=== PATIENT | male | born 1940 | race Caucasian/White ===

== ENCOUNTER → 2021-01-08 | Outpatient (CLI) | payer MEDICARE ==
--- NOTE | 2021-01-10 22:37 | CT ---
EXAMINATION TYPE: CT angio chest DATE OF EXAM: 01/08/2021 COMPARISON: None HISTORY: 80-year-old male I71.2, thoracic aortic aneurysm without rupture Thoracic aortic aneurysm. TECHNIQUE: Contiguous axial scanning of the chest performed without and with IV Contrast, patient inj ected with 80ml mL of Isovue 370. Coronal/sagittal MIP reconstructions performed. 3-D reconstructions generated on a dedicated independent workstation. CT DLP: 1485.6 mGycm Automated exposure control for dose reduction was used. FINDINGS: Heart upper limits of normal in size without pericardial effusion. Three-vessel coronary artery calci fications are present under a marker for coronary artery disease. Ectatic aortic root at 3.8 cm. 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 Conventional arch vessel branching anatomy but with a tortuous brachiocephalic artery. Minimal athero sclerotic calcifications. Aneurysmal upper descending thoracic aorta 4.0 cm. No thoracic lymphadenopathy by CT size criteria. Mildly enlarged caliber to the main right and left pulmonary arteries measuring up to 2.9 cm each, carvajal ggesting underlying pulmonary arterial hypertension. Some strandy dependent areas of atelectasis. Mild diffuse bronchial wall thickening suggesting bronch itis or chronic asthma. Additional strandy left basilar and anterior right lower lung areas of atelectasis or scarring. 5 mm subpleural pulmonary nodule anterior right middle lobe, axial image 41 in the reassessed in 6 mo nths. 4 mm peripheral right lower lobe subpleural pulmonary nodule, axial image 51. Mild thickening left adrenal gland without discrete nodularity. Cholecystectomy clips. [id number] te stool in the visualized colon. Bones: Degenerative changes of the glenohumeral joints. Anterior endplate spondylosis mid to lower th oracic spine. IMPRESSION: 1. ANEURYSMAL THORACIC AORTA (ASCENDING 4.5 CM AND UPPER DESCENDING 4.0 CM). 2. CAD WITH 3 VESSEL CORONARY ARTERY CALCIFICATIONS. POSSIBLE UNDERLYING PULMONARY ARTERY HYPERTENSIO N. 3. A COUPLE RIGHT-SIDED PULMONARY NODULES MEASURING UP TO 5 MM. 6-[address] FOLLOW-UP CT TO REASSESS.
== END | disposition home or self-care (01) ==
LOC: RADCTMAIN 12:47
PROVIDERS: ATTEND Internal Medicine Interventional Cardiology
DX: I71.2 Thoracic aortic aneurysm, without rupture (principal); I25.10 Atherosclerotic heart disease of native coronary artery without angina pectoris; I27.20 Pulmonary hypertension, unspecified; R91.8 Other nonspecific abnormal finding of lung field
CPT/HCPCS: 82565; 84520; 71275; 36415; Q9967

== ENCOUNTER → 2021-10-15 | Outpatient (CLI) | payer MEDICARE ==
--- NOTE | 2021-10-15 13:50 | CT ---
EXAMINATION TYPE: CT abdomen pelvis wo con DATE OF EXAM: 10/15/2021 COMPARISON: None HISTORY: Left sided hydronephrosis. CT DLP: 1326 mGycm Automated exposure control for dose reduction was used. TECHNIQUE: Helical acquisition of images was performed from the lung bases through the pelvis. FINDINGS: There are no significant abnormalities of the visualized lung bases. There are surgical absence of the gallbladder. There is no organomegaly involving the liver, pancreas , spleen or adrenal glands. There are no renal, ureteral or urinary bladder calcifications. There is no hydronephrosis. The bowel loops are normal in caliber and there is no bowel obstruction. No inflammatory changes are identified in the mesentery or bowel wall. The caliber of the abdominal aorta is normal and there is no retroperitoneal adenopathy or hemorrhage . There is a large amount of stool within the rectum. There is no pelvic mass or adenopathy. There are postsurgical changes of lower lumbar spinal fusion otherwise the visualized osseous structu res are intact. IMPRESSION: 1. No definite left hydronephrosis. 2. No renal, ureteral or urinary bladder calcifications. 3. No acute changes within the abdomen or pelvis 4. Surgical absence of the gallbladder.
== END | disposition home or self-care (01) ==
LOC: RADCTMAIN 09:05
PROVIDERS: ATTEND Urology
DX: Z90.49 Acquired absence of other specified parts of digestive tract (principal)
CPT/HCPCS: 74176

== ENCOUNTER → 2023-09-28 | Outpatient (CLI) | payer MEDICARE ==
[2023-09-28 14:15] LABS: African American GFR (CKD) 55 (>60 ml/min/1.73 sqM); Blood Urea Nitrogen 37 mg/dL (9-20); Non-African American GFR(CKD) 48 (>60 ml/min/1.73 sqM)
--- NOTE | 2023-09-28 16:13 | CT ---
EXAMINATION TYPE: CT angio chest DATE OF EXAM: 09/28/2023 3:44 PM COMPARISON: 01/08/2021 HISTORY: thoracic aortic aneurysm CT DLP: 1345.2 mGycm Automated exposure control for dose reduction was used. CONTRAST: CTA scan of the thorax is performed with IV Contrast, patient injected with 80 mL of Isovue 370, pulm onary embolism protocol. 3-D postprocessing was performed.. FINDINGS: Thoracic ascending aorta remains dilated at approximately 4.5 cm. The graft there is mild cardiomegal y. There is no mediastinal, hilar or axillary adenopathy. There are a few stable sub-5 mm right pulmonary nodules but no new or suspicious lung mass or nodule. There is no abnormal airspace/consolidative density or abnormal interstitial density. There is no pleural effusion, pleural thickening or pneumothorax. Limited scanning through the upper abdomen reveals cholecystectomy. No focal osseous lesions are seen. IMPRESSION: 1. Stable 4.5 cm dilatation of the ascending thoracic aorta. 2. A few stable sub-5 mm right pulmonary nodules. No new or suspicious lung masses or nodules. 3. No acute cardiopulmonary disease.
== END | disposition home or self-care (01) ==
LOC: RADCTMAIN 13:20
PROVIDERS: ATTEND Internal Medicine Interventional Cardiology
DX: I71.20 Thoracic aortic aneurysm, without rupture, unspecified (principal); R91.8 Other nonspecific abnormal finding of lung field
CPT/HCPCS: 82565; 84520; 71275; 36415; Q9967

== ENCOUNTER → 2023-12-12 | Outpatient (CLI) | payer MEDICARE ==
[2023-12-12 10:49] LABS: Prothrombin Time 10.6 sec (10.0-12.5)
[2023-12-12 11:31] LABS: Partial Thromboplastin Time 20.4 sec (22.0-30.0)
[2023-12-12 15:05] LABS: HCT 41.3 % (39.6-50.0); HGB 13.7 g/dL (13.0-17.0); MCH 30.1 pg (27.0-32.0); MCHC 33.2 g/dL (32.0-37.0); MCV 90.8 FL (80.0-97.0); Mean Platelet Volume 10.8 FL (9.5-12.2); NRBC Per 100 WBC 0 X 10*3/uL (0.00-0.01); Platelet Count 227 X 10*3/uL (140-440); RBC 4.55 X 10*6/uL (4.40-5.60); RDW 13.9 % (11.5-14.5); WBC 7.39 X 10*3/uL (4.50-10.00)
[2023-12-12 16:36] LABS: ALT 18 U/L (10-49); AST 34 U/L (14-35); Albumin 4.6 g/dL (3.8-4.9); Albumin/Globulin Ratio 1.77 Ratio (1.60-3.17); Alkaline Phosphatase 37 U/L (41-126); Blood Urea Nitrogen 24.6 mg/dL (9.0-27.0); Calcium 9.5 mg/dL (8.7-10.3); Carbon Dioxide 20.3 mmol/L (21.6-31.8); Chloride 100 mmol/L (96-109); Globulin 2.6 g/dL (1.6-3.3); Glucose 136 mg/dL (70-110); Potassium 4.6 mmol/L (3.5-5.5); Sodium 140 mmol/L (135-145); Total Bilirubin 0.9 mg/dL (0.3-1.2); Total Protein 7.2 g/dL (6.2-8.2)
== END | disposition home or self-care (01) ==
LOC: LABWHC1 09:37
PROVIDERS: ATTEND Orthopaedic Surgery
DX: Z01.812 Encounter for preprocedural laboratory examination (principal); M17.11 Unilateral primary osteoarthritis, right knee; Z22.322 Carrier or suspected carrier of Methicillin resistant Staphylococcus aureus
CPT/HCPCS: 36415; 80053; 85027; 85610; 85730; 87070

== ENCOUNTER 2023-12-26 13:06 | Inpatient (IN) | payer MEDICARE ==
[2023-12-26] MEDS ORDERED: ASPIRIN 81 MG ONE (20:00)
[2023-12-27] MEDS ORDERED: ASPIRIN 81 MG ONE ×2 (08:15→21:58)
[2023-12-28] MEDS ORDERED: ASPIRIN 81 MG ONE (09:05)
== END 2023-12-28 13:06 | disposition home health service (06) | DRG 470 ==
LOC: OR 13:06 → 3NCARDOBS 14:06
PROVIDERS: ADMIT Orthopaedic Surgery; ATTEND Orthopaedic Surgery
PROC: 0SRC069 Replacement of Right Knee Joint with Oxidized Zirconium on Polyethylene Synthetic Substitute, Cemented, Open Approach (ICD-10-PCS; principal; 2023-12-26)
DX: M17.11 Unilateral primary osteoarthritis, right knee (principal); I47.20 Ventricular tachycardia, unspecified; I45.3 Trifascicular block; N18.9 Chronic kidney disease, unspecified; I25.10 Atherosclerotic heart disease of native coronary artery without angina pectoris; I13.10 Hypertensive heart and chronic kidney disease without heart failure, with stage 1 through stage 4 chronic kidney disease, or unspecified chronic kidney disease; I70.0 Atherosclerosis of aorta; R26.81 Unsteadiness on feet; G89.29 Other chronic pain; M54.50 Low back pain, unspecified; N40.0 Benign prostatic hyperplasia without lower urinary tract symptoms; M21.161 Varus deformity, not elsewhere classified, right knee; M25.461 Effusion, right knee; E78.49 Other hyperlipidemia; Z95.5 Presence of coronary angioplasty implant and graft; Z79.899 Other long term (current) drug therapy; Z79.82 Long term (current) use of aspirin
CPT/HCPCS: 94760